=== PATIENT | female | born 1945 | race Caucasian/White ===

== ENCOUNTER 2018-01-17 09:11 | Emergency (ER) | payer OTHER ==
[~2018-01-17] VITALS: Ht 162.6 cm; Wt 82.1 kg
[2018-01-17] MEDS ORDERED: HYDRALAZINE HCL10 MG (09:25)
[2018-01-17] MEDS ORDERED: AMLODIPINE BESYL5 MG (09:26)
== END 2018-01-17 17:27 | disposition home or self-care (01) ==
LOC: ER 09:11
DX: R19.7 Diarrhea, unspecified (principal)